=== PATIENT | male | born 1970 | race Hispanic/Latino ===

== ENCOUNTER 2018-02-13 00:16 | Observation (INO) | payer BC, OTHER ==
[2018-02-13 00:16] VITALS: BMI 29.4
[2018-02-13 00:32] VITALS: RESP 17; TEMP 98.2
[2018-02-13 00:56] LABS: HEMOGLOBIN 14.1 g/dL (14.0-18.0); MEAN CORPUSCULAR HEMOGLOBIN 29.6 pg (25.0-35.0); MEAN CORPUSCULAR HGB CONC 33.7 g/dl (31.0-37.0); RBC 4.76 10^6/uL (3.5-6.1); RED CELL DISTRIBUTION WIDTH 12.3 % (11.5-14.5); WHITE BLOOD COUNT 8.7 10^3/ul (4.5-11.0)
[2018-02-13 00:59] LABS: INR 1.01; PARTIAL THROMBOPLASTIN TIME 31.6 Seconds (25.1-36.5); PROTHROMBIN TIME 11.5 SECONDS (9.4-12.5)
[2018-02-13 01:03] LABS: ALB/GLOB RATIO 1.5 (1.1-1.8); ALBUMIN 4.4 g/dL (3.0-4.8); ALT/SGPT 29 U/L (7-56); AST/SGOT 25 U/L (17-59); BLOOD UREA NITROGEN 22 mg/dL (7-21); CALCIUM 9.2 mg/dL (8.4-10.5); GFR NON-AFRICAN AMERICAN > 60
--- NOTE | 2018-02-13 01:04 | ED PDOC ---
Arrival/HPI - General Chief Complaint: Chest Pain Time Seen by Provider: 02/13/18 00:20 Historian: Patient - History of Present Illness Narrative History of Present Illness (Text): 02/13/18 01:01 A 47 year old male, with no significant past medical history, presents to the emergency department with a complaint of intermittent chest discomfort. The patient describes his discomfort as pressure and tightness. He notes that he has been experiencing theses symptoms for the past few days. He states that his symptoms occurred intermittently again this morning. He notes that he was seen by his PMD the other day and is scheduled for a cardiac stress test in the near future. Patient denies any drug use. The patient denies fevers, chills, headache, dizziness, sore throat, cough, palpitations, shortness of breath, dyspnea on exertion, abdominal pain, nausea, vomiting, diarrhea, neck/back pain, urinary/bowel changes or any other complaint. Time/Duration: Other (Few Days) Symptom Onset: Sudden Symptom Course: Intermittent Quality: Pressure, Tightness Activities at Onset: Rest, Light Context: Home Past Medical History - Provider Review Nursing Documentation Reviewed: Yes - Infectious Disease Hx of Infectious Diseases: None - Past Medical History Past Medical History: No Previous - Cardiac Hx Cardiac Disorders: No - Psychiatric Hx Depression: No Hx Emotional Abuse: No Hx Physical Abuse: No Hx Substance Use: No - Past Surgical History Past Surgical History: No Previous - Surgical History Other/Comment: Bilateral shoulder surgery - Anesthesia Hx Anesthesia: No - Suicidal Assessment Feels Threatened In Home Enviroment: No Family/Social History - Physician Review Nursing Documentation Reviewed: Yes Family/Social History: No Known Family HX Smoking Status: Never Smoked Hx Alcohol Use: Yes (SOCIALLY) Hx Substance Use: No Hx Substance Use Treatment: No Allergies/Home Meds Allergies/Adverse Reactions: Allergies No Known Allergies Allergy (Verified 11/07/11 05:59) Home Medications: Home Meds Medication Instructions Recorded Confirmed No Known Home Med 11/07/11 02/13/18 Review of Systems - Physician Review All systems were reviewed & negative as marked: Yes - Review of Systems Constitutional: absent: Fevers ENT: absent: Sore Throat Respiratory: absent: SOB, Cough Cardiovascular: Chest Pain (Chest discomfort described as pressure and tightness.). absent: Palpitations, MENDEZ Gastrointestinal: absent: Abdominal Pain, Stool Changes, Diarrhea, Nausea, Vomiting Genitourinary Male: absent: Urinary Output Changes Musculoskeletal: absent: Back Pain, Neck Pain Neurological: absent: Headache, Dizziness Physical Exam Vital Signs Reviewed: Yes Vital Signs Temp Pulse Resp BP Pulse Ox 02/13/18 00:31 98.2 F 81 17 148/75 95 Temperature: Afebrile Blood Pressure: Normal Pulse: Regular Respiratory Rate: Normal Appearance: Positive for: Well-Appearing, Non-Toxic, Comfortable Pain Distress: None Mental Status: Positive for: Alert and Oriented X 3 - Systems Exam Head: Present: Atraumatic, Normocephalic Pupils: Present: PERRL Extroacular Muscles: Present: EOMI Conjunctiva: Present: Normal Mouth: Present: Moist Mucous Membranes Neck: Present: Normal Range of Motion Respiratory/Chest: Present: Clear to Auscultation, Good Air Exchange. No: Respiratory Distress, Accessory Muscle Use Cardiovascular: Present: Regular Rate and Rhythm, Normal S1, S2. No: Murmurs Abdomen: No: Tenderness, Distention, Peritoneal Signs Back: Present: Normal Inspection Upper Extremity: Present: Normal Inspection. No: Cyanosis, Edema Lower Extremity: Present: Normal Inspection. No: Edema Neurological: Present: GCS=15, CN II-XII Intact, Speech Normal Skin: Present: Warm, Dry, Normal Color. No: Rashes Psychiatric: Present: Alert, Oriented x 3, Normal Insight, Normal Concentration Medical Decision Making ED Course and Treatment: 02/13/18 01:05 Impression: A 47 year old male presents to the emergency department with a complaint of several day duration chest discomfort. Plan: -- EKG -- Chest X-ray -- Labs -- Reassess and disposition Prior Visits: Notes and results from previous visits were reviewed. Progress Notes: 02/13/18 01:06 EKG: Ordered, reviewed, and independently interpreted the EKG. Rate : 85 BPM Rhythm : NSR Interpretation : No acute changes. 02/13/18 01:57: Chest X-ray read and interpreted by me shows no acute process. 02/13/18 02:24: Case discussed in detail with Dr. Nevin Estrella who accepts patient to his service. Requests Dr. Bourne on consult. - Lab Interpretations Lab Results: Lab Results 02/13/18 00:36: PT 11.5, INR 1.01, APTT 31.6 I have reviewed the lab results: Yes - RAD Interpretation Radiology Orders: 02/13/18 00:41 CHEST PORTABLE [RAD] Stat - EKG Interpretation Interpreted by ED Physician: Yes Type: 12 lead EKG - Scribe Statement The provider has reviewed the documentation as recorded by the Catrachitaibe Jovita Esteves Provider Scribe Attestation: All medical record entries made by the Scribe were at my direction and personally dictated by me. I have reviewed the chart and agree that the record accurately reflects my personal performance of the history, physical exam, medical decision making, and the department course for this patient. I have also personally directed, reviewed, and agree with the discharge instructions and disposition. Disposition/Present on Arrival - Present on Arrival Any Indicators Present on Arrival: No History of DVT/PE: No History of Uncontrolled Diabetes: No Urinary Catheter: No History of Decub. Ulcer: No History Surgical Site Infection Following: None - Disposition Have Diagnosis and Disposition been Completed?: Yes Diagnosis: Chest pain Disposition: HOSPITALIZED Disposition Time: 02:25 Patient Plan: Observation Condition: STABLE Discharge Instructions (ExitCare): Chest Pain (ED) Forms: [facility] (Kiswahili)
[2018-02-13 01:13] LABS: TROPONIN I < 0.01 ng/mL
[2018-02-13 03:08] VITALS: BP 122/81; PULSE 89; O2SAT 99
--- NOTE | 2018-02-13 03:48 | CP.PCM.PN ---
<Ade Serrano - Last Filed: 02/13/18 03:59> Subjective - Date & Time of Evaluation Date of Evaluation: 02/13/18 Time of Evaluation: 03:43 - Subjective Subjective: NIGHT FLOAT PROGRESS NOTE Ade Serrano D.O. PGY-1 S: Resident paged from nursing staff after pt requests to sign out AMA. Upon interview, pt aware of current condition and would like to sign out from the hospital AMA. Upon interview, pt reports his chest pain has resolved completely. He reports that he has a scheduled stress test with Dr. Bourne the following week and would prefer to undergo stress test on outpatient basis. He no reports no acute complaints, and has full capacity to answer questions. He denies fevers, chills, weakness headache, dizziness, diaphoresis, chest pain, palpitations, nausea, vomiting, constipation, diarrhea, dysuria. O: Gen: WDWN NAD. AXO x 3, ambulating. Vital signs stable. MSK: no tenderness to palpation on chest wall Neuro: CN 2-12 grossly intact Heart: RRR no m/r/g S1 S2 present. Lungs: CTA b/l u/l lobes Psych: normal affect, normal mood, answers questions appropriately Extremities: no calf tenderness A: 47 y/o M with PMH of HTN admitted for chest pain, r/o ACS P: Patient was told risks of signing out AMA, namely recurrence of chest pain, heart attack, pericardial effusion, pneumothorax and ultimately . Was told to return to ER if needed. Pt states he will pursue treatment with his PMD and assorter. Case seen, examined and discussed with attending physician, Dr. Gonzalez. Objective - Vital Signs/Intake and Output Vital Signs (last 24 hours): Temp Pulse Resp BP Pulse Ox 98.2 F 89 17 122/81 99 02/13/18 03:08 02/13/18 03:08 02/13/18 03:08 02/13/18 03:08 02/13/18 03:08 - Labs Labs: 02/13/18 00:36 02/13/18 00:36 PT 11.5 SECONDS (9.4-12.5) 02/13/18 00:36 INR 1.01 02/13/18 00:36 APTT 31.6 Seconds (25.1-36.5) 02/13/18 00:36 <Rosa Gonzalez - Last Filed: 02/13/18 04:52> Objective - Vital Signs/Intake and Output Vital Signs (last 24 hours): Temp Pulse Resp BP Pulse Ox 98.2 F 89 17 122/81 99 02/13/18 03:08 02/13/18 03:08 02/13/18 03:08 02/13/18 03:08 02/13/18 03:08 - Labs Labs: 02/13/18 00:36 02/13/18 00:36 PT 11.5 SECONDS (9.4-12.5) 02/13/18 00:36 INR 1.01 02/13/18 00:36 APTT 31.6 Seconds (25.1-36.5) 02/13/18 00:36 Attending/Attestation - Attestation I have personally seen and examined this patient.: No I have fully participated in the care of the patient.: Yes I have reviewed all pertinent clinical information, including history, physical exam and plan: Yes Notes (Text): 02/13/18 04:52 Above noted. Discussed with resident doctor.
--- NOTE | 2018-02-13 08:00 | RAD ---
Date of service: 02/13/2018 HISTORY: pain COMPARISON: No prior. FINDINGS: LUNGS: No active pulmonary disease. PLEURA: No significant pleural effusion identified, no pneumothorax apparent. CARDIOVASCULAR: Normal. OSSEOUS STRUCTURES: No significant abnormalities. VISUALIZED UPPER ABDOMEN: Normal. OTHER FINDINGS: None. IMPRESSION: No acute cardiopulmonary disease appreciated.
--- NOTE | 2018-02-13 10:18 | CARD ---
APPROVED REPORT Date of service: 02/13/2018 EKG Measurement Heart [id number] <Conclusion> Normal sinus rhythm Normal ECG
== END 2018-02-13 04:00 | disposition left against medical advice (07) ==
LOC: ED 00:16 → ERH 02:23 → 3RSO 03:04
PROVIDERS: ADMIT Student in an Organized Health Care Education/Training Program; ATTEND Student in an Organized Health Care Education/Training Program
DX: R07.9 Chest pain, unspecified (principal); I10 Essential (primary) hypertension
CPT/HCPCS: 71045; 80053; 82550; 83615; 84484; 85027; 85610; 85730; 93005; 99285; G0378